=== PATIENT | male | born 1950 | race Caucasian/White ===

== ENCOUNTER 2017-09-16 09:42 | Day surgery (SDC) | payer OTHER ==
[~2017-09-16 09:42] MED LIST: CIPROFLOXACIN 400MG/D5W 200 ML IVPB; GENTAMICIN 120 MG/NS (PMX) 100 ML IVPB
[2017-09-16] MEDS ORDERED: MIDAZOLAM 1 MG/ML 2 ML INJ (12:23)
[2017-09-16] MEDS ORDERED: FENTAnyl 50 MCG/ML VIAL (12:23)
[2017-09-16] MEDS ORDERED: ONDANSETRON 4 MG INJ (12:24)
[2017-09-16] MEDS ORDERED: ALBUTEROL 0.083% (NEB) 2.5 MG/3 ML AMP HHN (12:30)
[2017-09-16] MEDS ORDERED: HYDROmorphONE 1 MG/5 ML IV SYRINGE IV ×3 (12:30)
[2017-09-16] MEDS ORDERED: ONDANSETRON 4 MG INJ IV (12:30)
[2017-09-16] MEDS ORDERED: EPHEDrine SULFATE 50 MG/5 ML SYG IV (12:30)
[2017-09-16] MEDS ORDERED: LABETALOL HCL 20MG INJ IV (12:30)
[2017-09-16] MEDS ORDERED: FENTAnyl 50 MCG/ML VIAL IV ×3 (12:30)
[2017-09-16] MEDS ORDERED: OXYCODONE/ACETAMINOPHEN (5/325) TAB PO ×2 (12:30)
[2017-09-16] MEDS ORDERED: IPRATROPIUM (NEB) 0.5 MG/2.5 ML AMP HHN (12:30)
[2017-09-16] MEDS ORDERED: TRIMETHOBENZAMIDE 100 MG/ML VIAL IM (12:30)
[2017-09-16] MEDS ORDERED: DIPHENHYDRAMINE 50 MG INJ IV (12:30)
[2017-09-16] MEDS ORDERED: MIDAZOLAM 1 MG/ML 2 ML INJ IV (12:30)
[2017-09-16] MEDS ORDERED: hydrALAzine 20 MG INJ IV (12:30)
[2017-09-16] MEDS ORDERED: MEPERIDINE 25 MG INJ IV (12:30)
[2017-09-16] MEDS: LIDOCAINE 1% (MPF) 30 ML INJ (12:38)
== END 2017-09-16 15:15 | disposition home or self-care (01) ==
LOC: SDS 09:42
DX: N31.9 Neuromuscular dysfunction of bladder, unspecified (principal); R33.9 Retention of urine, unspecified; E11.9 Type 2 diabetes mellitus without complications; I10 Essential (primary) hypertension
CPT/HCPCS: 51102

== ENCOUNTER 2017-12-23 08:12 | Day surgery (SDC) | payer OTHER, MEDICAID ==
[~2017-12-23 08:12] MED LIST changes: -CIPROFLOXACIN 400MG/D5W 200 ML IVPB; +DEXAMETHASONE 4 MG/ML 1 ML INJ; -GENTAMICIN 120 MG/NS (PMX) 100 ML IVPB; +ONDANSETRON 4 MG INJ; +ROCURONIUM 50 MG INJ
[2017-12-23] MEDS: VANCOMYCIN 1 GM 250 ML IVPB (09:02)
[2017-12-23] MEDS ORDERED: PROPOFOL 20 ML (09:33)
[2017-12-23] MEDS ORDERED: ROCURONIUM 50 MG INJ (09:33)
[2017-12-23 09:50] LABS: INR 1.07; PT RATIO 1.1
[2017-12-23 09:51] LABS: PARTIAL THROMBOPLASTIN TIME 34.6 Sec (23.0-35.0)
[2017-12-23] MEDS ORDERED: HYDROmorphONE 1 MG/5 ML IV SYRINGE IV ×3 (10:30)
[2017-12-23] MEDS ORDERED: MEPERIDINE 25 MG INJ IV (10:30)
[2017-12-23] MEDS ORDERED: DIPHENHYDRAMINE 50 MG INJ IV (10:30)
[2017-12-23] MEDS ORDERED: ONDANSETRON 4 MG INJ IV (10:30)
[2017-12-23] MEDS ORDERED: OXYCODONE/ACETAMINOPHEN (5/325) TAB PO (10:30)
[2017-12-23] MEDS ORDERED: FENTAnyl 50 MCG/ML VIAL IV ×3 (10:30)
[2017-12-23] MEDS ORDERED: hydrALAzine 20 MG INJ IV (10:30)
[2017-12-23] MEDS ORDERED: KETOROLAC 30 MG INJ IV (10:30)
[2017-12-23] MEDS ORDERED: LABETALOL HCL 20MG INJ IV (10:30)
[2017-12-23] MEDS ORDERED: MIDAZOLAM 1 MG/ML 2 ML INJ IV (10:30)
[2017-12-23] MEDS ORDERED: ALBUTEROL 0.083% (NEB) 2.5 MG/3 ML AMP HHN (10:30)
[2017-12-23] MEDS: OXYCODONE/ACETAMINOPHEN (5/325) TAB PO (11:56)
== END 2017-12-23 12:27 | disposition home or self-care (01) ==
LOC: SDS 08:12
DX: N36.8 Other specified disorders of urethra (principal); N31.9 Neuromuscular dysfunction of bladder, unspecified; N21.0 Calculus in bladder; I10 Essential (primary) hypertension
CPT/HCPCS: 51102; 85610; 85730

== ENCOUNTER 2017-12-28 15:29 | Emergency (ER) | payer OTHER, MEDICAID | END 2017-12-28 17:29 | disposition home or self-care (01) | LOC: E/R 15:29 | DX: R33.9 Retention of urine, unspecified (principal) | CPT/HCPCS: 51702; 99283-25 ==

== ENCOUNTER 2018-01-29 15:37 | Emergency (ER) | payer OTHER, MEDICAID | END 2018-01-29 16:30 | disposition home or self-care (01) | LOC: E/R 15:37 | DX: T83.038A Leakage of other urinary catheter, initial encounter (principal); R40.2142 Coma scale, eyes open, spontaneous, at arrival to emergency department; R40.2362 Coma scale, best motor response, obeys commands, at arrival to emergency department; R40.2252 Coma scale, best verbal response, oriented, at arrival to emergency department; I10 Essential (primary) hypertension; Y73.2 Prosthetic and other implants, materials and accessory gastroenterology and urology devices associated with adverse incidents | CPT/HCPCS: 99282; 99282-25 ==

== ENCOUNTER 2018-02-07 11:17 | Emergency (ER) | payer OTHER, MEDICAID | END 2018-02-07 12:22 | disposition home or self-care (01) | LOC: E/R 11:17 | DX: R33.9 Retention of urine, unspecified (principal); I10 Essential (primary) hypertension; Y73.2 Prosthetic and other implants, materials and accessory gastroenterology and urology devices associated with adverse incidents; Z79.01 Long term (current) use of anticoagulants | CPT/HCPCS: 99282 ==

== ENCOUNTER 2018-02-08 17:55 | Emergency (ER) | payer OTHER, MEDICAID | END 2018-02-08 19:23 | disposition home or self-care (01) | LOC: E/R 17:55 | DX: R33.9 Retention of urine, unspecified (principal); I10 Essential (primary) hypertension; Y73.2 Prosthetic and other implants, materials and accessory gastroenterology and urology devices associated with adverse incidents; Z79.01 Long term (current) use of anticoagulants | CPT/HCPCS: 99282 ==